=== PATIENT | female | born 1965 | race African-American/Black ===

== ENCOUNTER 2023-08-05 14:35 | Emergency (ER) | payer MEDICAID | END 2023-08-05 15:10 | disposition left against medical advice (07) | LOC: ER 14:35 | DX: S80.862A Insect bite (nonvenomous), left lower leg, initial encounter (principal); Z53.21 Procedure and treatment not carried out due to patient leaving prior to being seen by health care provider; W57.XXXA Bitten or stung by nonvenomous insect and other nonvenomous arthropods, initial encounter; Y93.89 Activity, other specified; Y92.89 Other specified places as the place of occurrence of the external cause; Y99.8 Other external cause status | CPT/HCPCS: 99281 ==